=== PATIENT | male | born 1930 | race Caucasian/White ===

== ENCOUNTER 2016-10-22 13:16 | Emergency (ER) | payer OTHER, MEDICARE ==
[2016-10-22 13:35] VITALS: TEMP 98.3; BMI 37.1
--- NOTE | 2016-10-22 13:37 | PDOC ---
[id number] No Limitations - History of Present Illness Initial Comments: 10/22/16 13:43 The patient is a 86 year old male, with no significant past medical history, who presents today with a laceration on his nose s/p mechanical fall. The patient states that he was walking out of the coffee shop when he tripped on the concrete sidewalk and scratched the top of his nose. He denies any other head trauma. The patient states that he regularly takes baby aspirin. Denies LOC. Denies headache, lightheadedness, dizziness. Denies chest pain, SOB. Allergies: None reported PCP- Dr. Rubin <Dee Lerner - Last Filed: 10/22/16 15:31> <Nerissa Joe - Last Filed: 10/26/16 09:20> - General Chief Complaint: Injury Stated Complaint: FALL Time Seen by Provider: 10/22/16 13:30 Past History <Dee Lerner - Last Filed: 10/22/16 15:31> - Past Medical History Cardiac Disorders: Yes HTN: Yes - Surgical History Abdominal Surgery: Yes Cholecystectomy: Yes - Psycho/Social/Smoking Cessation Hx Anxiety: No Suicidal Ideation: No Smoking History: Never smoked Hx Alcohol Use: No Drug/Substance Use Hx: No Substance Use Type: None <Nerissa Joe - Last Filed: 10/26/16 09:20> - Past Medical History Allergies/Adverse Reactions: Allergies Allergy/AdvReac Type Severity Reaction Status Date / Time No Known Allergies Allergy Verified 10/22/16 13:30 Home Medications: Ambulatory Orders Amoxicillin/Potassium Clav [Augmentin 875-125 Tablet] 1 each PO BID #20 tablet 10/22/16 Review of Systems - Review of Systems Able to Perform ROS?: Yes Comments:: 10/22/16 13:43 GENERAL/CONSTITUTIONAL: No fever or chills. No weakness. HEAD, EYES, EARS, NOSE AND THROAT: No change in vision. No ear pain or discharge. No sore throat. CARDIOVASCULAR: No chest pain or shortness of breath. RESPIRATORY: No cough, wheezing, or hemoptysis. GASTROINTESTINAL: No nausea, vomiting, diarrhea or constipation. GENITOURINARY: No dysuria, frequency, or change in urination. MUSCULOSKELETAL: No joint or muscle swelling or pain. No neck or back pain. SKIN: +laceration on the bridge of the nose. No rash NEUROLOGIC: No headache, vertigo, loss of consciousness, or change in strength/ sensation. <VinodliyaDee - Last Filed: 10/22/16 15:31> *Physical Exam - Vital Signs Last Vital Signs Temp Pulse Resp BP Pulse Ox 98.3 F 62 18 140/65 98 10/22/16 13:30 10/22/16 13:30 10/22/16 13:30 10/22/16 13:30 10/22/16 13:30 - Physical Exam Comments: 10/22/16 13:44 GENERAL: Awake, alert, and fully oriented, in no acute distress HEAD: No signs of trauma EYES: PERRLA, EOMI, sclera anicteric, conjunctiva clear LUNGS: Breath sounds equal, clear to auscultation bilaterally. No wheezes, and no crackles HEART: Regular rate and rhythm, normal S1 and S2, no murmurs, rubs or gallops EXTREMITIES: Normal range of motion, no edema. No clubbing or cyanosis. No cords, erythema, or tenderness NEUROLOGICAL: Cranial nerves II through XII grossly intact. Normal speech, normal gait SKIN: +1cm laceration on the bridge of the nose. Mild deformity with oozing of blood. <VinodDee nickerson - Last Filed: 10/22/16 15:31> - Vital Signs Last Vital Signs Temp Pulse Resp BP Pulse Ox 98.3 F 62 18 140/65 98 10/22/16 13:30 10/22/16 13:30 10/22/16 13:30 10/22/16 13:30 10/22/16 13:30 <Nerissa Joe - Last Filed: 10/26/16 09:20> Procedures - Laceration/Wound Repair Upper Nose Wound Length: to 2.5 cm Wound Explored: clean, no foreign body present Wound's Depth, Shape: superficial, irregular, flap, contused tissue Anesthesia: 1% Lidocaine Amount of Anesthetic (ccs): 1 Wound Debrided: minimal Wound Repaired With: Sutures Suture Size/Type: 5:0 (plain gut) Number of Sutures: 5 Layer Closure: No Sterile Dressing Applied: Yes <Nerissa Joe - Last Filed: 10/26/16 09:20> ED Treatment Course - RADIOLOGY Radiograph Interpretation: 10/22/16 15:31 EXAM#: TYPE/EXAM: RESULT: [id number] CT/HEAD CT WITHOUT CONTRAST Rule out intracranial hemorrhage. CT brain C. Direct axial images were obtained with coronal, sagittal reconstruction images. No evidence of acute subarachnoid hemorrhage, acute intra-axial or extra-axial fluid collection consistent with subdural or epidural hematoma. No mass effect, midline shift, acute territorial ischemic changes, herniation or edema is present. Normal klein matter white matter differentiation. The cortical sulci sylvian fissures, perimesencephalic cisterns are not effaced. Loss of volume of the brain parenchyma with involutional changes. Intracranial vascular calcifications are noted. No evidence of skull fracture. Impression. No evidence of acute intracranial hemorrhage, edema, midline shift or herniation. No evidence of hydrocephalus.. No CT evidence of acute territorial infarction. Reported By: Az Croft MD 10/22/16 1520 EXAM#: TYPE/EXAM: RESULT: [id number] CT/FACIAL BONES CT W/O CONTRAST CT FACIAL BONES. History. Rule out fracture, status post fall onto nose. Direct axial images of the facial bones were obtained. The study was supplemented with computer generated, sagittal and coronal reconstruction images. Findings. The most superior aspect of the orbits not imaged Soft tissue swelling is seen in the nasal region, along the anterior aspect of the nasal septum. Mildly displaced right nasal bone fracture is seen. Questionable fracture of the left nasal bone. Intact medial inferior orbital grey. No evidence of mandible fracture. Normal temporomandibular joints. No evidence of opacification of the paranasal sinuses, air-fluid levels. Small bilateral danica bullosa The temporal bone temporal bones demonstrates normal degree of pneumatization. No evidence of opacification the mastoid air cells, middle ear. Symmetrical internal, external auditory canals. Normal ossicles. The scutum is intact. No evidence of mass in the region of the lateral epitympanic recess. Symmetrical globes. Globes. No no evidence of lens dislocation. Unremarkable retro-orbital soft tissues. Radiopaque foreign body seen No abnormality seen in the upper cervical spine. No evidence of widening of the predental space. Intact odontoid. Impression: Right nasal bone fracture with mild degree of displacement. Questionable fracture of the left nasal bone. Intact remaining visualized facial bones. Reported By: Az Croft MD 10/22/16 1527 <Dee Lerner - Last Filed: 10/22/16 15:31> *DC/Admit/Observation/Transfer - Attestations Scribe Attestion: 10/22/16 13:44 Documentation prepared by LANE Suero, acting as medical health researcher for Nerissa Joe MD. <Dee Lerner - Last Filed: 10/22/16 15:31> - Discharge Dispostion Admit: No <Nerissa Joe - Last Filed: 10/26/16 09:20> Diagnosis at time of Disposition: Open fracture nose Qualifiers: Encounter type: initial encounter Qualified Code(s): S02.2XXB - Fracture of nasal bones, initial encounter for open fracture Laceration of nose Qualifiers: Encounter type: initial encounter Qualified Code(s): S01.21XA - Laceration without foreign body of nose, initial encounter - Discharge Dispostion Disposition: HOME Condition at time of disposition: Stable - Prescriptions Prescriptions: Amoxicillin/Potassium Clav [Augmentin 875-125 Tablet] 1 each PO BID #20 tablet - Referrals Referrals: Kaushik Rubin MD [Primary Care Provider] - Delio Little MD [Staff Physician] - - Patient Instructions Printed Discharge Instructions: DI for Nose Fracture, How to Care for Absorbable Sutures
[2016-10-22] MEDS ORDERED: DIPHTH,PERTUSS(ACELL),TET VAC 0.5 ML VIAL IM ONE (14:31)
[2016-10-22 15:49] VITALS: BP 137/74; PULSE 80
== END 2016-10-22 15:50 | disposition home or self-care (01) ==
LOC: JER 13:16
PROC: 09QKXZZ Repair Nasal Mucosa and Soft Tissue, External Approach (ICD-10-PCS; principal; 2016-10-22)
PROC: 3E0234Z Introduction of Serum, Toxoid and Vaccine into Muscle, Percutaneous Approach (ICD-10-PCS; 2016-10-22)
DX: S02.2XXA Fracture of nasal bones, initial encounter for closed fracture (principal); S01.21XA Laceration without foreign body of nose, initial encounter; W01.0XXA Fall on same level from slipping, tripping and stumbling without subsequent striking against object, initial encounter; Y93.89 Activity, other specified; Y92.480 Sidewalk as the place of occurrence of the external cause; Y99.8 Other external cause status
CPT/HCPCS: 12011-25; 70450-TC; 70486-TC; 90471; 90715; 99283-25